=== PATIENT | male | born 1955 | race Caucasian/White ===

== ENCOUNTER 2017-02-05 12:24 | Emergency (ER) | payer SELFPAY ==
[2017-02-05 12:42] VITALS: BP 179/113
--- NOTE | 2017-02-05 13:15 | ED Physician Documentation ---
History of Present Illness - Stated complaint Stated Complaint: CONGESTION - Chief complaint Chief Complaint: General - History obtained from History obtained from: Patient, Family - History of Present Illness Timing: Other (For the last week he has had severe facial pain in the area of the right maxillary sinus with congestion and mild sore throat but no fevers or cough. Got worse during traveling. It is constant. It is not worse if he moves or choose. There is no visual change. No ear pain.) Review of Systems Constitutional: denies: Fever, Chills Ears: denies: Ear pain Nose: reports: Rhinorrhea / runny nose, Congestion, Sinus pressure / pain Throat: denies: Dental pain / toothache, Oral lesions / sores, Sore throat Cardiac: denies: Chest pain / pressure, Palpitations Respiratory: denies: Dyspnea, Cough PD PAST MEDICAL HISTORY - Past Medical History Past Medical History: No - Past Surgical History Past Surgical History: No - Present Medications Home Medications: Ambulatory Orders Medication Instructions Recorded Confirmed Amox/Clav 875/125 [Augmentin] 1 each PO Q12H 14 Days #28 tablet 02/05/17 Mometasone Furoate [Nasonex] 1 spray NS BID #1 spray.pump 02/05/17 guaiFENesin [Mucinex] 600 mg PO BID #20 tablet 02/05/17 - Allergies Allergies/Adverse Reactions: Allergies Allergy/AdvReac Type Severity Reaction Status Date / Time No Known Drug Allergies Allergy Verified 02/05/17 12:42 - Social History Does the pt smoke?: No Smoking Status: Never smoker Does the pt drink ETOH?: No Does the pt have substance abuse?: No - Immunizations Immunizations are current?: Yes - POLST Patient has POLST: No PD ED PE NORMAL - Vitals Vital signs reviewed: Yes - General General: Alert and oriented X 3, No acute distress - HEENT HEENT: PERRL, EOMI, Ears normal, Other (Mild TTP R max sinus, TMs nl, no facial swelling, EOMI) - Neck Neck: Supple, no meningeal sign, No bony TTP, No adenopathy - Cardiac Cardiac: RRR, No murmur - Respiratory Respiratory: No respiratory distress, Clear bilaterally - Abdomen Abdomen: Non tender - Neuro Neuro: Alert and oriented X 3, Normal speech - Psych Psych: Normal mood, Normal affect Results - Vitals Vitals: Vital Signs - 24 hr 02/05/17 12:39 Temperature 36.3 C L Heart Rate 88 Respiratory 17 Rate Blood Pressure 179/113 H O2 Saturation 98 Oxygen O2 Source Room air PD MEDICAL DECISION MAKING - ED course ED course: 61-year-old gentleman with clinical sinusitis, extraocular movements are intact , there is no clinical evidence of orbital cellulitis or other infectious process. Departure - Departure Disposition: 01 Home, Self Care Clinical Impression: Sinusitis Qualifiers: Sinusitis location: maxillary Chronicity: acute Recurrence: non-recurrent Qualified Code(s): J01.00 - Acute maxillary sinusitis, unspecified Condition: Good Record reviewed to determine appropriate education?: Yes Instructions: ED Sinusitis Abx Tx Prescriptions: Amox/Clav 875/125 [Augmentin] 1 each PO Q12H 14 Days #28 tablet guaiFENesin [Mucinex] 600 mg PO BID #20 tablet Mometasone Furoate [Nasonex] 1 spray NS BID #1 spray.pump Comments: Drink plenty of fluids, return if worse. Follow-up with your doctor in 1 week if not better. Your blood pressure was elevated today on check into the emergency department. This does not mean that you have hypertension, it is a common phenomenon to come to the emergency department and have elevated blood pressure. I recommend that you see your primary care physician within the week to have it rechecked when you are feeling better.
== END 2017-02-05 13:18 | disposition home or self-care (01) ==
LOC: ED 12:24
DX: J01.00 Acute maxillary sinusitis, unspecified (principal); R03.0 Elevated blood-pressure reading, without diagnosis of hypertension
CPT/HCPCS: 99283

== ENCOUNTER 2017-04-12 13:38 | Emergency (ER) | payer SELFPAY ==
[2017-04-12 13:46] VITALS: BP 183/115
[2017-04-12] MEDS ORDERED: SODIUM CHLORIDE 0.9% 1,000 ML IV ONE (13:54)
[2017-04-12] MEDS ORDERED: METOPROLOL TARTRATE 50 MG TABLET PO STA (13:54)
[2017-04-12] MEDS ORDERED: METOPROLOL 5 MG/5 ML VIAL IVP STA (13:54)
--- NOTE | 2017-04-12 13:58 | ED Physician Documentation ---
PD HPI CHEST PAIN - Stated complaint Stated Complaint: CHEST PX - Chief complaint Chief Complaint: Cardiac - History obtained from History obtained from: Patient - History of Present Illness Timing - onset: Other (He has known coronary disease, stented 1 in 2010 for a heart attack. He developed burning upper epigastric and lower anterior nonradiating chest pain at 11 AM without shortness of breath or nausea. He is still in pain that is moderate.) Review of Systems Ten Systems: 10 systems reviewed and negative Constitutional: denies: Fever, Chills Respiratory: denies: Dyspnea, Cough GI: denies: Abdominal Pain, Nausea, Vomiting PD PAST MEDICAL HISTORY - Past Medical History Past Medical History: Yes Cardiovascular: Hypertension, Coronary artery disease - Past Surgical History Past Surgical History: No - Allergies Allergies/Adverse Reactions: Allergies Allergy/AdvReac Type Severity Reaction Status Date / Time No Known Drug Allergies Allergy Verified 04/12/17 13:46 - Social History Does the pt smoke?: No Smoking Status: Never smoker Does the pt drink ETOH?: No Does the pt have substance abuse?: No - Family History Family history: reports: Non contributory - Immunizations Immunizations are current?: Yes - POLST Patient has POLST: No PD ED PE NORMAL - Vitals Vital signs reviewed: Yes - General General: Alert and oriented X 3, No acute distress - HEENT HEENT: PERRL, EOMI - Neck Neck: Supple, no meningeal sign, No bony TTP - Cardiac Cardiac: RRR, No murmur - Respiratory Respiratory: No respiratory distress, Clear bilaterally - Abdomen Abdomen: Normal bowel sounds, Soft, Non tender - Back Back: No CVA TTP, No spinal TTP - Derm Derm: Normal color, Warm and dry - Extremities Extremities: No edema, No calf tenderness / cord - Neuro Neuro: Alert and oriented X 3, Normal speech - Psych Psych: Normal mood, Normal affect Results - Vitals Vitals: Vital Signs - 24 hr 04/12/17 13:41 Temperature 36.3 C L Heart Rate 77 Respiratory 16 Rate Blood Pressure 183/115 H O2 Saturation 98 Oxygen O2 Source Room air - EKG (time done) 1346 Rate: Rate (enter#) (74) Rhythm: NSR [place]: LAD Intervals: Normal RI Ischemia: ST elevation c/w ischemia (Especially V2 through V4, but with also significant Q waves in the same distribution.) Compare to prior EKG: Old EKG unavailable Computer interpretation: Agree with computer - Labs Labs: Laboratory Tests 04/12/17 04/12/17 04/12/17 14:10 14:10 14:10 WBC 9.0 RBC 5.61 Hgb 15.7 Hct 46.2 MCV 82.3 MCH 28.0 MCHC 34.0 RDW 13.3 Plt Count 241 MPV 9.0 Neut # 6.2 Lymph # 1.7 [place] # 0.8 Eos # 0.1 Baso # 0.2 H Absolute Nucleated RBC 0.00 Nucleated RBC % 0.0 PT 11.7 INR 1.0 Sodium 136 Potassium 3.0 L Chloride 100 L Carbon Dioxide 22 Anion Gap 14.0 H BUN 12 Creatinine 1.1 Estimated GFR (MDRD) 68 L Glucose 113 H Calcium 9.0 Total Bilirubin 0.5 AST 23 ALT 22 Alkaline Phosphatase 46 Total Creatine Kinase 73 CK-MB (CK-2) Troponin I Total Protein 7.5 Albumin 4.4 Globulin 3.1 Albumin/Globulin Ratio 1.4 Lipase 26 04/12/17 14:10 WBC RBC Hgb Hct MCV MCH MCHC RDW Plt Count MPV Neut # Lymph # [place] # Eos # Baso # Absolute Nucleated RBC Nucleated RBC % PT INR Sodium Potassium Chloride Carbon Dioxide Anion Gap BUN Creatinine Estimated GFR (MDRD) Glucose Calcium Total Bilirubin AST ALT Alkaline Phosphatase Total Creatine Kinase CK-MB (CK-2) 2.6 Troponin I 0.05 Total Protein Albumin Globulin Albumin/Globulin Ratio Lipase PD MEDICAL DECISION MAKING - ED course ED course: 61-year-old gentleman with known coronary disease presents with atypical chest pain but a concerning EKG. It seems like it already has significant Q waves which is inconsistent with the story of only 3 hours of pain, case was discussed by phone with Dr. Tan at [facility] cardiology who recommended that we simply just called a STEMI and send him expeditiously to [facility]. STEMI code was called 2:05 PM. He was administered IV and oral metoprolol, heparin bolus and drip, aspirin. - Critical Care Time(min): 35 Time Includes: Direct patient care, Review records, Reassess patient, Document care, Coordinate care, Medical consult, Family consult for tx dec Data interpretation: Labs Procedures included in critical care time: Peripheral IV Procedures excluded from critical care time: EKG Departure - Departure Disposition: 02 Transfer Acute Care Hosp Clinical Impression: STEMI (ST elevation myocardial infarction) Qualifiers: Involved coronary artery: unspecified coronary artery Qualified Code(s): I21.3 - ST elevation (STEMI) myocardial infarction of unspecified site Condition: Serious Discharge Date/Time: 04/12/17 14:22
[2017-04-12] MEDS ORDERED: ASPIRIN CHEW 81 MG TABLET PO STA (14:04)
[2017-04-12] MEDS ORDERED: HEPARIN 5,000 UNIT/ML VIAL IVP ONE (14:04)
[2017-04-12] MEDS ORDERED: HEPARIN 25000UNITS/500ML (D5W) 25,000 UNIT/500 ML BAG IV STA (14:04)
[2017-04-12 14:27] LABS: BASOPHILS # (AUTO) 0.2 10^3/uL (0.0-0.1); BASOPHILS % (AUTO) 2.5 %; EOSINOPHILS # (AUTO) 0.1 10^3/uL (0.0-0.7); EOSINOPHILS % (AUTO) 1.5 %; HGB - HEMOGLOBIN 15.7 g/dL (14.0-18.0); LYMPHOCYTES # (AUTO) 1.7 10^3/uL (1.5-3.5); LYMPHOCYTES % (AUTO) 18.6 %; MEAN CORPUSCULAR VOLUME 82.3 fL (80.0-94.0); MONOCYTES # (AUTO) 0.8 10^3/uL (0.0-1.0); MONOCYTES % (AUTO) 8.7 %; NEUTROPHILS # (AUTO) 6.2 10^3/uL (1.5-6.6); NEUTROPHILS % (AUTO) 68.7 %; PLT - PLATELET COUNT 241 10^3/uL (130-450); RED BLOOD COUNT 5.61 10^6/uL (4.70-6.10); RED CELL DISTRIBUTION WIDTH 13.3 % (12.0-15.0)
[2017-04-12 14:33] LABS: PT - PROTHROMBIN TIME 11.7 secs (9.9-12.6)
[2017-04-12] MEDS ORDERED: ASPIRIN CHEW 81 MG TABLET ONE (14:33)
[2017-04-12 14:41] LABS: ALBUMIN 4.4 g/dL (3.2-5.5); ALBUMIN/GLOBULIN RATIO 1.4 (1.0-2.2); BILIRUBIN,TOTAL 0.5 mg/dL (0.2-1.0); CREATININE 1.1 mg/dL (0.6-1.2); TOTAL PROTEIN 7.5 g/dL (6.7-8.2)
[2017-04-12 14:46] LABS: TROPONIN I 0.05 ng/mL (<0.49)
[2017-04-12 14:48] LABS: CREATINE KINASE MB 2.6 ng/mL (0.6-6.3)
== END 2017-04-12 14:22 | disposition short-term general hospital (02) ==
LOC: ED 13:38
DX: I21.3 ST elevation (STEMI) myocardial infarction of unspecified site (principal); I25.10 Atherosclerotic heart disease of native coronary artery without angina pectoris; I10 Essential (primary) hypertension
CPT/HCPCS: 36415; 80053; 82550; 82553; 83690; 84484; 85025; 85610; 93005; 96374; 96375; 99284; 99291; A9270

== ENCOUNTER 2017-04-12 14:38 | Outpatient (CLI) | payer SELFPAY | END 2017-04-12 14:39 | disposition short-term general hospital (02) | LOC: EMS 14:38 | PROVIDERS: ATTEND Surgery | DX: I21.3 ST elevation (STEMI) myocardial infarction of unspecified site (principal) | CPT/HCPCS: A0425; A0427 ==